=== PATIENT | female | born 1950 | race Asian ===

== ENCOUNTER 2016-12-05 02:20 | Inpatient (IN) | payer OTHER, MEDICAID ==
[2016-09-14 13:21] VITALS: Ht 157.5 cm; Wt 63.5 kg
[~2016-12-05] VITALS: Ht 157.5 cm; Wt 63.5 kg
[2016-12-05] VITALS (22 sets, daily range): BP systolic 141–236; BP diastolic 52–102; PULSE 64–124; RESP 17–49; TEMP 97.6–99; O2SAT 95–100
[~2016-12-05 02:20] MED LIST: ALLO100T PO; ALPR0.2583 PO; ATEN50TA PO; CALC667C PO; CAT.1 PO; CAT.2 PO; DOCU250C PO; FOLI0.8T2 PO; GLYBURIDE; HYDR-1189 PO; LABETALOL; LACT10SO7 PO; LISI-600 PO; NEPH PO; NIFE60TA83 PO; NIFEDIPINE; ONDA4TAB5 PO; PROCRIT; SITA25TA3 PO; SSNOVOLOG SUBCUT; TRICOR; VYTORIN
[2016-12-05 03:21] LABS: BLOOD GAS BASE EXCESS 4.7 mmol/L (-3.0-3.0); BLOOD GAS COHb% 0.9 % (0.5-1.5); BLOOD GAS HHB 25.9 % (0.0-6.0); BLOOD O2Hb% 72.4 % (94.0-97.0)
[2016-12-05 03:23] LABS: BASOPHILS % (AUTO) 0.2 % (0.0-2.0); EOSINOPHILS # (AUTO) 0.1 K/uL (0.0-0.4); EOSINOPHILS % (AUTO) 0.8 % (0.0-4.0); LYMPHOCYTES # (AUTO) 0.6 K/uL (1.0-5.5); LYMPHOCYTES % (AUTO) 3.9 % (20.5-51.5); MEAN CORPUSCULAR HEMOGLOBIN 30 pg (27-31); MEAN CORPUSCULAR HGB CONC 33 % (32-36); MEAN CORPUSCULAR VOLUME 91 fL (79.0-98.0); MONOCYTES # (AUTO) 0.8 K/uL (0.0-1.0); NEUTROPHILS # (AUTO) 13.6 K/uL (1.8-7.7); NEUTROPHILS % (AUTO) 90.1 % (40.0-70.0); PLATELET COUNT (AUTO) 460 K/uL (130-430); RED BLOOD CELL COUNT(AUTO) 2.34 MIL/uL (4.2-6.2); RED CELL DISTRIBUTION WIDTH 16.4 % (9.0-15.0); WHITE BLOOD COUNT (AUTO) 15.1 K/uL (4.8-10.8)
[2016-12-05 03:29] LABS: CALCIUM 10.4 mg/dL (8.4-11.0); POTASSIUM 4.6 mmol/L (3.5-5.1)
[2016-12-05] MEDS ORDERED: LABETALOL 100 MG/ 20ML VIAL ONE ×2 (04:11→06:37)
[2016-12-05] MEDS ORDERED: LABETALOL 100 MG/ 20ML VIAL IVP ONE ×2 (04:15→06:30)
[2016-12-05 04:18] LABS: CREATININE 7.68 mg/dL (0.55-1.30)
[2016-12-05 04:34] LABS: HEMATOCRIT 21.4 % (36-48)
[2016-12-05] MEDS ORDERED: PIPERACILLIN/TAZOBACTAM 2.25 GM in NS 50 ML IV ONE (05:00)
[2016-12-05] MEDS ORDERED: VANCOMYCIN HCL 500 MG in NS 100 ML IV ONE (05:00)
[2016-12-05] MEDS ORDERED: VANCOMYCIN HCL 500 MG/VIAL IV ONE (05:21)
[2016-12-05] MEDS ORDERED: PIPERACILLIN/TAZOBACTAM 2.25 GM VIAL IV ONE ×2 (05:22)
[2016-12-05] MEDS ORDERED: NA P118E RC (05:39)
[2016-12-05] MEDS ORDERED: IPRA3AMP9 INH (05:41)
[2016-12-05] MEDS ORDERED: IPRATROPIUM/ALBUTEROL SULFATE 3 ML AMPUL.NEB ONE (06:44)
[2016-12-05] MEDS ORDERED: methylPREDNISolone SOD SUCC/PF 62.5 MG/ML VIAL ONE (06:54)
[2016-12-05] MEDS ORDERED: hydrALAZINE HCL 20 MG/ML VIAL IVP ONE ×2 (07:00→14:00)
[2016-12-05] MEDS ORDERED: hydrALAZINE HCL 20 MG/ML VIAL ONE (07:02)
[2016-12-05] MEDS ORDERED: IPRATROPIUM/ALBUTEROL SULFATE 3 ML AMPUL.NEB INH ONE (07:15)
[2016-12-05] MEDS: cloNIDine HCL 0.1 MG TABLET PO SCH ×3 (08:19→20:16)
[2016-12-05] MEDS ORDERED: ATENOLOL 50 MG TABLET (TENORMIN) PO SCH (09:00)
[2016-12-05] MEDS ORDERED: cloNIDine HCL 0.1 MG TABLET PO PRN (10:15)
[2016-12-05] MEDS ORDERED: IPRATROPIUM/ALBUTEROL SULFATE 3 ML AMPUL.NEB INH PRN (10:15)
[2016-12-05] MEDS ORDERED: NA PHOS,M-B/NA PHOS,DI-BA 118 ML (FLEET ENEMA) RC PRN (10:15)
[2016-12-05] MEDS ORDERED: HYDROcodone/ACETAMIN 5-325 MG TAB (NORCO/ VICODIN) PO PRN (10:15)
[2016-12-05] MEDS ORDERED: CALCIUM ACETATE 667 MG CAP PO ONE (10:30)
[2016-12-05] MEDS ORDERED: ALLOPURINOL 100 MG TABLET (ZYLOPRIM) PO ONE (10:30)
[2016-12-05] MEDS ORDERED: DOCUSATE SODIUM 250 MG CAPSULE PO ONE (10:45)
[2016-12-05] MEDS ORDERED: LISINOPRIL 20 MG TABLET PO ONE (10:45)
[2016-12-05] MEDS ORDERED: NIFEDIPINE 60 MG TABLET.SA (PROCARDIA XL 60 MG) PO ONE (10:45)
[2016-12-05] MEDS: INSULIN REGULAR, HUMAN 100 UNITS/ML, 10 ML VIAL (novoLIN R) SUBCUT PRN (12:03)
[2016-12-05] MEDS ORDERED: ALPRAZolam 0.25 MG TABLET PO PRN (13:30)
[2016-12-05] MEDS ORDERED: ASPIRIN 81 MG TABLET(ECOTRIN) PO ONE (14:00)
[2016-12-05] MEDS ORDERED: cefTRIAXone 1 GM in D5W 50 ML IV ONE (14:30)
[2016-12-05] MEDS: CALCIUM ACETATE 667 MG CAP PO SCH ×2 (14:32→20:13)
[2016-12-05] MEDS ORDERED: cloNIDine HCL 0.2 MG TABLET PO SCH (15:00)
[2016-12-05] MEDS: IPRATROPIUM/ALBUTEROL SULFATE 3 ML AMPUL.NEB INH SCH ×2 (15:20→23:41)
[2016-12-05] MEDS ORDERED: CARVEDILOL 6.25 MG TABLET (COREG) PO ONE (16:45)
[2016-12-05] MEDS ORDERED: HEPARIN SODIUM,PORCINE 5000 UNITS/ML VIAL SUBCUT ONE (16:45)
[2016-12-05] MEDS: DOCUSATE SODIUM 250 MG CAPSULE PO SCH (20:14)
[2016-12-05] MEDS: hydrALAZINE HCL 25 MG TABLET PO SCH (20:15)
[2016-12-05] MEDS: CARVEDILOL 6.25 MG TABLET (COREG) PO SCH (20:17)
[2016-12-05] MEDS: NIFEDIPINE 60 MG TABLET.SA (PROCARDIA XL 60 MG) PO SCH (20:18)
[2016-12-05] MEDS: LISINOPRIL 20 MG TABLET PO SCH (20:18)
[2016-12-05] MEDS: HEPARIN SODIUM,PORCINE 5000 UNITS/ML VIAL SUBCUT SCH (20:22)
[2016-12-05 23:37] LABS: ALBUMIN 2.9 g/dL (3.4-4.8); BILIRUBIN,DIRECT 0.1 mg/dL (0.0-0.3); TOTAL BILIRUBIN 0.5 mg/dL (0.0-1.0); TOTAL PROTEIN, SERUM 7.7 g/dL (6.4-8.3)
[2016-12-06] VITALS (12 sets, daily range): BP systolic 133–154; BP diastolic 55–72; PULSE 60–68; RESP 16–20; TEMP 97.9–99.8; O2SAT 97–100
[2016-12-06] MEDS: IPRATROPIUM/ALBUTEROL SULFATE 3 ML AMPUL.NEB INH SCH ×3 (06:00→20:09)
[2016-12-06 06:33] LABS: BASOPHILS % (AUTO) 0.6 % (0.0-2.0); EOSINOPHILS # (AUTO) 0.1 K/uL (0.0-0.4); EOSINOPHILS % (AUTO) 1.9 % (0.0-4.0); HEMATOCRIT 28.6 % (36-48); HEMOGLOBIN 9.8 g/dL (12.0-16.0); LYMPHOCYTES # (AUTO) 1.4 K/uL (1.0-5.5); LYMPHOCYTES % (AUTO) 19.8 % (20.5-51.5); MEAN CORPUSCULAR HEMOGLOBIN 30 pg (27-31); MEAN CORPUSCULAR HGB CONC 34 % (32-36); MEAN CORPUSCULAR VOLUME 89 fL (79.0-98.0); MONOCYTES # (AUTO) 0.6 K/uL (0.0-1.0); MONOCYTES % (AUTO) 8.7 % (1.7-9.3); NEUTROPHILS # (AUTO) 4.8 K/uL (1.8-7.7); PLATELET COUNT (AUTO) 335 K/uL (130-430); RED BLOOD CELL COUNT(AUTO) 3.22 MIL/uL (4.2-6.2); RED CELL DISTRIBUTION WIDTH 16.2 % (9.0-15.0)
[2016-12-06 06:36] LABS: PROTHROMBIN TIME 10.4 SECS (9.5-12.5)
[2016-12-06] MEDS: INSULIN REGULAR, HUMAN 100 UNITS/ML, 10 ML VIAL (novoLIN R) SUBCUT PRN (06:51)
[2016-12-06 07:12] LABS: ALBUMIN 2.8 g/dL (3.4-4.8); CALCIUM 10.5 mg/dL (8.4-11.0); CREATININE 6.01 mg/dL (0.55-1.30); POTASSIUM 4.7 mmol/L (3.5-5.1); TOTAL BILIRUBIN 0.5 mg/dL (0.0-1.0); TOTAL PROTEIN, SERUM 7.7 g/dL (6.4-8.3)
[2016-12-06 07:19] LABS: WHITE BLOOD COUNT (AUTO) 6.9 K/uL (4.8-10.8)
[2016-12-06 07:50] LABS: THYROID STIMULATING HORMONE 0.44 uIu/mL (0.34-4.82)
[2016-12-06] MEDS: cefTRIAXone 1 GM in D5W 50 ML IV SCH (08:38)
[2016-12-06] MEDS: CARVEDILOL 6.25 MG TABLET (COREG) PO SCH ×2 (08:39→21:09)
[2016-12-06] MEDS: CALCIUM ACETATE 667 MG CAP PO SCH ×3 (08:39→21:08)
[2016-12-06] MEDS: DOCUSATE SODIUM 250 MG CAPSULE PO SCH ×2 (08:42→21:10)
[2016-12-06] MEDS: cloNIDine HCL 0.1 MG TABLET PO SCH ×3 (08:42→21:10)
[2016-12-06] MEDS: ATORVASTATIN 20 MG TABLET PO SCH (08:42)
[2016-12-06] MEDS: ASPIRIN 81 MG TABLET(ECOTRIN) PO SCH (08:42)
[2016-12-06] MEDS: NIFEDIPINE 60 MG TABLET.SA (PROCARDIA XL 60 MG) PO SCH ×2 (08:43→21:10)
[2016-12-06] MEDS: ALLOPURINOL 100 MG TABLET (ZYLOPRIM) PO SCH (08:43)
[2016-12-06] MEDS: LISINOPRIL 20 MG TABLET PO SCH ×2 (08:50→21:09)
[2016-12-06] MEDS: hydrALAZINE HCL 25 MG TABLET PO SCH ×2 (08:50→21:15)
[2016-12-06] MEDS: HEPARIN SODIUM,PORCINE 5000 UNITS/ML VIAL SUBCUT SCH ×2 (08:52→21:13)
[2016-12-06] MEDS ORDERED: ATENOLOL 50 MG TABLET (TENORMIN) PO SCH (09:00)
[2016-12-06] MEDS: INSULIN ASPART 100 UNITS/ML, 10 ML VIAL (NovoLOG) SUBCUT PRN (21:25)
[2016-12-07] VITALS (7 sets, daily range): BP systolic 84–177; BP diastolic 41–80; PULSE 60–84; RESP 17–20; TEMP 96.6–98.6; O2SAT 96–100
[2016-12-07 07:57] LABS: BASOPHILS # (AUTO) 0.1 K/uL (0.0-0.2); BASOPHILS % (AUTO) 0.9 % (0.0-2.0); EOSINOPHILS # (AUTO) 0.3 K/uL (0.0-0.4); EOSINOPHILS % (AUTO) 4.8 % (0.0-4.0); HEMATOCRIT 28.7 % (36-48); HEMOGLOBIN 9.7 g/dL (12.0-16.0); LYMPHOCYTES # (AUTO) 1.1 K/uL (1.0-5.5); LYMPHOCYTES % (AUTO) 17.8 % (20.5-51.5); MEAN CORPUSCULAR HEMOGLOBIN 30 pg (27-31); MEAN CORPUSCULAR HGB CONC 34 % (32-36); MEAN CORPUSCULAR VOLUME 91 fL (79.0-98.0); MONOCYTES # (AUTO) 0.5 K/uL (0.0-1.0); MONOCYTES % (AUTO) 8.3 % (1.7-9.3); NEUTROPHILS # (AUTO) 4.3 K/uL (1.8-7.7); NEUTROPHILS % (AUTO) 68.2 % (40.0-70.0); PLATELET COUNT (AUTO) 323 K/uL (130-430); RED BLOOD CELL COUNT(AUTO) 3.18 MIL/uL (4.2-6.2); RED CELL DISTRIBUTION WIDTH 15.9 % (9.0-15.0); WHITE BLOOD COUNT (AUTO) 6.3 K/uL (4.8-10.8)
[2016-12-07] MEDS: cloNIDine HCL 0.1 MG TABLET PO SCH ×3 (09:15→21:17)
[2016-12-07] MEDS: DOCUSATE SODIUM 250 MG CAPSULE PO SCH ×2 (09:16→21:17)
[2016-12-07] MEDS: CALCIUM ACETATE 667 MG CAP PO SCH ×3 (09:16→21:16)
[2016-12-07] MEDS: ASPIRIN 81 MG TABLET(ECOTRIN) PO SCH (09:16)
[2016-12-07] MEDS: ATORVASTATIN 20 MG TABLET PO SCH (09:16)
[2016-12-07] MEDS: CARVEDILOL 6.25 MG TABLET (COREG) PO SCH ×2 (09:16→21:18)
[2016-12-07] MEDS: NIFEDIPINE 60 MG TABLET.SA (PROCARDIA XL 60 MG) PO SCH ×2 (09:17→21:17)
[2016-12-07] MEDS: LISINOPRIL 20 MG TABLET PO SCH ×2 (09:17→21:19)
[2016-12-07] MEDS: ALLOPURINOL 100 MG TABLET (ZYLOPRIM) PO SCH (09:17)
[2016-12-07] MEDS: hydrALAZINE HCL 25 MG TABLET PO SCH ×2 (09:17→21:18)
[2016-12-07] MEDS: HEPARIN SODIUM,PORCINE 5000 UNITS/ML VIAL SUBCUT SCH ×2 (09:21→21:16)
[2016-12-07] MEDS: IPRATROPIUM/ALBUTEROL SULFATE 3 ML AMPUL.NEB INH SCH ×3 (10:08→21:53)
[2016-12-07] MEDS: cefTRIAXone 1 GM in D5W 50 ML IV SCH (11:52)
[2016-12-07] MEDS: INSULIN ASPART 100 UNITS/ML, 10 ML VIAL (NovoLOG) SUBCUT PRN (20:31)
[2016-12-08 00:39] VITALS: BP 170/77; PULSE 60; RESP 18; TEMP 96.9; O2SAT 100
[2016-12-08 03:43] VITALS: BP 175/74; PULSE 54; RESP 18; TEMP 97.1; O2SAT 100
[2016-12-08] MEDS: INSULIN ASPART 100 UNITS/ML, 10 ML VIAL (NovoLOG) SUBCUT PRN ×2 (06:13→12:52)
[2016-12-08] MEDS: IPRATROPIUM/ALBUTEROL SULFATE 3 ML AMPUL.NEB INH SCH (07:49)
[2016-12-08 08:00] VITALS: BP 183/77; PULSE 66; RESP 18; TEMP 99.1; O2SAT 98
[2016-12-08] MEDS: HEPARIN SODIUM,PORCINE 5000 UNITS/ML VIAL SUBCUT SCH (09:00)
[2016-12-08] MEDS: DOCUSATE SODIUM 250 MG CAPSULE PO SCH (09:09)
[2016-12-08] MEDS: ATORVASTATIN 20 MG TABLET PO SCH (09:09)
[2016-12-08] MEDS: CALCIUM ACETATE 667 MG CAP PO SCH (09:09)
[2016-12-08] MEDS: NIFEDIPINE 60 MG TABLET.SA (PROCARDIA XL 60 MG) PO SCH (09:10)
[2016-12-08] MEDS: hydrALAZINE HCL 25 MG TABLET PO SCH (09:10)
[2016-12-08] MEDS: cloNIDine HCL 0.1 MG TABLET PO SCH (09:11)
[2016-12-08] MEDS: CARVEDILOL 6.25 MG TABLET (COREG) PO SCH (09:12)
[2016-12-08] MEDS: ASPIRIN 81 MG TABLET(ECOTRIN) PO SCH (09:12)
[2016-12-08] MEDS: ALLOPURINOL 100 MG TABLET (ZYLOPRIM) PO SCH (09:13)
[2016-12-08] MEDS: cefTRIAXone 1 GM in D5W 50 ML IV SCH (09:13)
[2016-12-08] MEDS: LISINOPRIL 20 MG TABLET PO SCH (09:13)
[2016-12-08 12:00] VITALS: BP 157/45; PULSE 58; RESP 21; TEMP 98; O2SAT 100
== END 2016-12-08 14:57 | disposition short-term general hospital (02) | DRG 280 ==
LOC: SED 02:20 → STU 05:43 → SIC 07:15 → STU 12-06 10:56
PROVIDERS: ADMIT Internal Medicine; ATTEND Internal Medicine
PROC: 5A1D60Z (ICD-10-PCS; principal; 2016-12-05)
PROC: 5A09357 Assistance with Respiratory Ventilation, Less than 24 Consecutive Hours, Continuous Positive Airway Pressure (ICD-10-PCS; 2016-12-05)
PROC: 30233N1 Transfusion of Nonautologous Red Blood Cells into Peripheral Vein, Percutaneous Approach (ICD-10-PCS; 2016-12-05)
DX: I21.4 Non-ST elevation (NSTEMI) myocardial infarction (principal); J96.01 Acute respiratory failure with hypoxia; N18.6 End stage renal disease; I50.33 Acute on chronic diastolic (congestive) heart failure; I13.2 Hypertensive heart and chronic kidney disease with heart failure and with stage 5 chronic kidney disease, or end stage renal disease; E11.22 Type 2 diabetes mellitus with diabetic chronic kidney disease; E11.65 Type 2 diabetes mellitus with hyperglycemia; D64.9 Anemia, unspecified; F03.90 Unspecified dementia, unspecified severity, without behavioral disturbance, psychotic disturbance, mood disturbance, and anxiety; F41.9 Anxiety disorder, unspecified; Z86.73 Personal history of transient ischemic attack (TIA), and cerebral infarction without residual deficits; Z99.2 Dependence on renal dialysis; Z79.899 Other long term (current) drug therapy
CPT/HCPCS: 36415; 36600; 70450-TC; 71010; 80048; 80053; 80061; 80076; 82803-TC; 82962; 83605; 83880; 84443-TC; 84484; 85025; 85610-TC; 85730-TC; 86886; 86900; 86901; 86920; 87040-TC; 87081; 90935; 90937; 93005; 93306; 94640; 94660; 94760; 96365; 96367; 96375; 99285; J0360; J0696; J1644; J1815; J2543; J2930; J3370; J3490; J7030; J7050; J7060; P9021